=== PATIENT | female | born 1975 | race Caucasian/White ===

== ENCOUNTER → 2018-10-01 | Day surgery (SDC) | payer BC ==
[~2018-10-01] MED LIST: LISINOPRIL5 MG PO; NORCO 5-325 TA1 EACH PO; PREMARIN0.625 MG PO; SYNTHROID50 MCG PO; ZYRTEC10 M5 PO
--- NOTE | ~2018-10-01 | OP ---
[address] [address] OPERATIVE REPORT Name: JOSE PORTILLO Room: [facility]#: [id number] Admission: 10/01/18 Attend Phys: Dina Henao DO Discharge: Date of : 77 Report #: [id number] THIS REPORT FOR: //name// CC: Dina Reynoso Nadira-Kingsley DATE OF SERVICE: 10/01/2018 PREOPERATIVE DIAGNOSES: 1. Right lower quadrant abdominal pain, chronic in nature. 2. Incarcerated incisional hernias at the umbilicus. POSTOPERATIVE DIAGNOSES: 1. Right lower quadrant abdominal pain, chronic in nature. 2. Incarcerated incisional hernias at the umbilicus. ADDITIONAL FINDINGS: Left inguinal hernia and very dense scar tissue in the right lower quadrant. SURGEON: Dina Henao DO. COSURGEON: Andrzej Grant, PGY-3. HIGH SCHOOL TEACHER: Rossi Campbell, PGY1. PROCEDURE PERFORMED: Diagnostic laparoscopy, lysis of adhesions of 30 minutes, incisional hernia repair x 2 with mesh. ANESTHESIA TYPE: LMA and local. ESTIMATED BLOOD LOSS: 5 mL. DRAINS: None. SPECIMENS: None. COMPLICATIONS: None. CONDITION: Stable. DISPOSITION: PACU to home. HISTORY OF PRESENT ILLNESS: The patient is a very pleasant 43-year-old female who presented to my office with a complaint of chronic ongoing right lower quadrant abdominal pain. She had no other associated symptoms and could find no pattern to the pain. She had undergone a CT scan, which did show a [facility] [address] [place] [address] OPERATIVE REPORT Name: JOSE PORTILLORINA Room: [facility]#: [id number] Admission: 10/01/18 Attend Phys: Dina Henao DO Discharge: Date of : 77 Report #: [id number] supraumbilical and an infraumbilical incisional hernia, but no other findings in the abdomen. The patient has had multiple surgeries including hysterectomy. On her physical exam, she did have a quite visible supraumbilical incarcerated hernia and a small infraumbilical incarcerated hernia. She was then consented for an incisional hernia repair x 2 with diagnostic laparoscopy and all other indicated procedures. Risks discussed included bleeding, infection, pain, scar formation, injury to bowel or bladder, recurrence of the hernias, mesh complications requiring explantations, need for further surgery and risks of general anesthesia. The patient understood these risks and elected to proceed. DESCRIPTION OF PROCEDURE: The patient was brought to the operating room. She was laid supine on the operating room table. SCDs were placed on bilateral lower extremities. Ancef was given in the perioperative period. General LMA anesthesia was induced by anesthesia without difficulty. Abdomen was prepped and draped in standard sterile fashion. Timeout was performed to verify patient and procedure. A 10 mL of 0.5% Marcaine were injected in the infraumbilical area where there were multiple previous incisions. Incision was made in this area with an 11 blade. Cautery was used for hemostasis. We immediately encountered very dense scar tissue under the umbilicus. This was very carefully taken down until we encountered the large hernia sac at the supraumbilical area. The sac was completely reduced from the umbilicus. Any adhesions holding the incarcerated omentum to the sac were carefully taken down until the incarcerated omentum could be reduced into the abdomen. At this point, finger was gently swept into the abdomen and further lysis of adhesions was completed until the entirety of the area was completely free. Two stitches of 0 Vicryl were then placed on the fascia. Daniel trocar was introduced through the hernia defect and the abdomen was insufflated. The patient was placed slightly head down. Camera was introduced and a brief anterior abdominal exploration was undertaken. We immediately noticed the area of the infraumbilical incisional hernia actually contained a fair amount of incarcerated omentum. Because this was almost directly at our [place] port, the omentum was transected at the level of the fascia very carefully utilizing cautery. Once this lysis of adhesions was completed, we continued our diagnostic laparoscopy. The patient was placed slightly left side down. At this point, a moderate size left inguinal hernia without contents was identified. We turned our attention to the right lower quadrant. The appendix was easily identified. It was soft, non-indurated, nonerythematous and overall appeared to be normal in nature. It was gently moved superiorly. We were then able to visualize the entirety of the right lower quadrant. I immediately noticed that at the area of what appeared to be her right salpingo-oophorectomy, there was a large area of dense scar tissue that was somewhat erythematous and inflamed even just gently touching the area caused it to bleed somewhat. There was nothing attached to the scar tissue. There was no bowel involvement. The appendix was not involved. The area was directly over the iliac vessels. A picture was taken for the patient's future knowledge. Pelvis was also inspected. There were no significant findings. There were no other findings in the abdomen. Abdomen was then desufflated after [address] [address] OPERATIVE REPORT Name: JOSE PORTILLO Room: [facility]#: [id number] Admission: 10/01/18 Attend Phys: Dina Henao DO Discharge: Date of : 77 Report #: [id number] removing our 5 mm trocar in the left lower quadrant under direct visualization. There was no bleeding noted from the peritoneum. Our Daniel trocar was removed. Any further adhesions at the supraumbilical defect were carefully taken down using cautery. The defect was then gently elevated and I was able to visualize the infraumbilical incisional hernia. There was only a small bridge of fascia intact between the 2 hernia defects. This was taken down using cautery. There was still a fairly significant amount of omentum, which we had not been able to fall into the abdomen. This was gently reduced from the tract. The tract did extend for approximately 3 cm towards the right lower quadrant and again a fair amount of omentum was removed and was handed off. The fascial edges were then gently grasped using Julius clamps. The totality of the now one incisional hernia was measured and measured approximately 2 x 2 cm. A medium muckleshoot Ventralex ST mesh was brought onto the field and was easily deployed within the defect. It was then carefully sutured into place using 4 interrupted stitches of 0 Prolene in a [id number] fashion with excellent approximation of the mesh to the anterior abdominal wall. Care was taken during the suturing to avoid any underlying abdominal structures. The defect itself was then closed over the mesh using 2 interrupted stitches of 0 Prolene with excellent approximation of the hernia defect. An additional 10 mL of 0.5% Marcaine were injected in the fascia. Our umbilical stump was then reapproximated to the underlying fascia. Wound was then closed in a layered fashion using deep and superficial stitches of 3-0 Vicryl in inverted interrupted fashion. Skin wound was closed with a running 4-0 Monocryl. Our 5 mm trocar in the left lower quadrant was also closed with 4-0 Monocryl. A total of 30 mL of 0.5% Marcaine were used to anesthetize the wounds. Wounds were then cleansed and covered with Mastisol, Steri-Strips, 4 x 4's, and a Tegaderm. The patient was then allowed to awaken from anesthesia, was extubated and transported to the recovery room with no further difficulties. Counts were correct x 2 at the conclusion of the case. Binder was placed in the operating room. By: [id number] Henao DO /maykel
[2018-10-01 06:35] LABS: HEMATOCRIT 44.4 % (37.0-47.0); HEMOGLOBIN 14.8 gm/dL (12.0-15.0); MCH 30.2 pg (26.0-34.0); MCHC 33.2 g/dL (28.0-37.0); MCV 91.1 fL (80.0-100.0); MPV 8.4 fl. (7.2-11.1); RBC 4.88 mil/uL (4.20-5.00); RDW-CV 13.3 % (10.5-14.5)
[2018-10-01 06:47] LABS: CALCIUM 9.1 mg/dL (8.5-10.1)
--- NOTE | 2018-10-01 12:49 | EKG ---
[place] [address] ELECTROCARDIOGRAM REPORT Name: PORTILLO,JOSE VENKAT JUSTYN Room: [facility]#: [id number] Admission: 10/01/18 Attend Phys: Dina Henao DO Discharge: Date of : 77 Report #: [id number] THIS REPORT FOR: //name// [facility] Test Date: 2018-10-01 Test Time: 07:11:44 Pat Name: JOSE PORTILLO Department: Room: Gender: F Train Starter: JUANCHO : 1975 Requested By: Dina Henao Order Number: [id number] Pk MD: Luis Rojas Measurements Intervals [place] Rate: 67 P: 22 [place]: 139 QRS: 42 QRSD: 100 T: 31 QT: 404 QTc: 427 Interpretive Statements Sinus rhythm Low voltage, precordial leads No previous ECG available for comparison Electronically Signed On 10-01-2018 12:49:19 HOSPITAL SALES REPRESENTATIVE by Luis Rojas [email or web address] <ELECTRONICALLY SIGNED> By: Luis Rojas MD, [facility] 10/01/18 1249 0711 0 Luis Rojas MD, FACC /EPI
== END | disposition home or self-care (01) ==
LOC: M.SUR 06:11
PROVIDERS: Surgery
DX: K43.0 Incisional hernia with obstruction, without gangrene (principal); K40.90 Unilateral inguinal hernia, without obstruction or gangrene, not specified as recurrent; L90.5 Scar conditions and fibrosis of skin; K66.0 Peritoneal adhesions (postprocedural) (postinfection); Z88.0 Allergy status to penicillin; Z88.2 Allergy status to sulfonamides; Z88.8 Allergy status to other drugs, medicaments and biological substances; Z79.899 Other long term (current) drug therapy